=== PATIENT | female | born 1990 | race Caucasian/White ===

== ENCOUNTER 2018-06-07 08:29 | Inpatient (IN) ==
[2018-06-07] MEDS ORDERED: Citric Acid/Sodium Citrate Liq 30 ML UDC PO SCH (09:30)
[2018-06-07] MEDS ORDERED: Morphine Sulfate PF Inj 5 MG/10 ML Ampul ONE (09:40)
[2018-06-07 09:52] LABS: Baso % (Auto) 0.5 % (0.0-2.0); Eos # (Auto) 0.1 th/mm3 (0.0-0.4); Hematocrit 35.1 % (35.0-46.0); Lymph # (Auto) 2.1 th/mm3 (1.0-4.8); Lymph % (Auto) 29.7 % (9.0-44.0); Mean Corpuscular HGB Conc 34.1 % (32.0-36.0); Mean Corpuscular Hemoglobin 33.3 pg (27.0-34.0); Mean Corpuscular Volume 97.8 fL (80.0-100.0); Mean Platelet Volume 9.9 fL (7.0-11.0); Mono # (Auto) 0.8 th/mm3 (0.0-0.9); Mono % (Auto) 10.7 % (0.0-8.0); Neut # (Auto) 4.1 th/mm3 (1.8-7.7); Neut % (Auto) 58.1 % (16.0-70.0); Platelet Count 212 th/mm3 (150-450); Red Blood Count 3.59 mil/mm3 (4.00-5.30); Red Cell Distribution Width 13.6 % (11.6-17.2)
--- NOTE | 2018-06-07 09:57 | P.HPOB ---
History of Present Illness Primary Care Physician: No Primary Care Physician History of Present Illness: 27 year-old at 39 weeks EGA by dates, confirmed with 10 week ultrasound. Presents for elective . She denies any contractions today or leakage of fluid. Denies any vaginal bleeding. Patient has felt movements. care: [facility] by Dr. Cerna starting at 10 weeks. Patient has had an uncomplicated course. No UTIs. Patient is compliant. Denies a diagnosis of Gestational diabetes and preeclampsia. Patient has been NPO after midnight. labs: A negative, hemoglobin = 12 on 06/07, rubella immune, HepBsAg nonreactive, HIV negative, Pap within normal limits, GC chlamydia negative, glucose = 132, GBS negative. OB Hx: First had an uncomplicated course. Emergency C- section at 40 weeks due to umbilical cord strangulation in 2007. 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 PMH: Fibromyalgia, Anxiety, Depression. FHx: Denies any defects, CF, twins. Allergies: NKDA Meds: vitamins. Social history: No tobacco, alcohol or drug abuse, , no domestic violence. - Inpatient Certification I certify that the inpatient services were ordered in accordance with Medicare regulations governing the order. This includes certification that hospital inpatient services are reasonable and necessary and in the case of services not specified as inpatient-only under 42 CFR 419.22(n), that they are appropriately provided as inpatient services in accordance to with the 2-midnight benchmark under 43 CFR 412.3(e) Estimated Total Length of Stay (Days): 3 Plans for Post Hospital Care: Home Review of Systems All other systems reviewed negative except as stated in HPI PMFSH - History History Provided By: Patient - Travel History Recent Travel in the [place] Within the Last 8 Weeks: No Recent Travel Out of the Country Within the Last 8 Weeks: No Medications and Allergies Allergies Allergy/AdvReac Type Severity Reaction Status Date / Time No Known Drug Allergies Allergy Unknown none Verified 06/07/18 09:03 Home Medications Medication Instructions Recorded Confirmed Type + DHA 1 tab PO DAILY 06/07/18 06/07/18 History Active Medications: Active Medications Citric Acid/Sodium Citrate (Sodium Citrate/Citric Acid Liq) 30 ml PO [employer] [place] Stop: 06/11/18 09:29 Cefazolin Sodium 2,000 mg/ (Sodium Chloride) 100 mls @ 200 mls/hr IV.SIG [employer] [facility] Stop: 06/11/18 09:59 Lactated Ringer's (Lr 1000 Ml Inj) 1,000 mls @ 2,000 mls/hr IV.SIG .Q30M ONE Stop: 06/07/18 09:58 Lactated Ringer's (Lr 1000 Ml Inj) 1,000 mls @ 150 mls/hr IV.CONT .Q6H40M [facility] Exam Vital signs: Vital Signs 06/07/18 08:44 Temperature 97.7 F Pulse Rate 96 H Respiratory Rate 16 Blood Pressure 120/79 Intake & Output 06/06/18 06/07/18 06/07/18 18:59 06:59 18:59 Weight 93.44 kg Other: Weight On Admission 93.44 kg Narrative: GENERAL: Well-nourished, well-developed patient. SKIN: Warm and dry. HEAD: Normocephalic and atraumatic. EYES: No scleral icterus. No injection or drainage. ENT: No nasal drainage noted. Mucous membranes pink. Airway patent. NECK: Supple, trachea midline. No JVD. CARDIOVASCULAR: Regular rate and rhythm without murmurs, gallops, or rubs. RESPIRATORY: Breath sounds equal bilaterally. No accessory muscle use. ABDOMEN/GI: Abdomen soft, non-tender, bowel sounds present, no rebound, no guarding Gravid to 39 weeks size FHT's: Category: 1 Baseline: 140 bmp Reactive: + Variability: moderate Decels: none EXTREMITIES: No cyanosis or edema. NEUROLOGICAL: Awake and alert. Normal speech. - Constitutional no acute distress - Routine Abdominal Exam Comments: gravid - Routine Extremities Exam Comments: warm, well perfused in lower ext b/l. Results - Labs CBC & Chem 7: 06/07/18 09:00 Caprini VTE Risk Assessment Caprini VTE Risk Assessment: No/Low Risk (score <= 1) Caprini Risk Assessment Model: Point Value = 1 Point Value = 2 Point Value = 3 Point Value = 5 Age 41-60 Minor surgery BMI > 25 kg/m2 Swollen legs Varicose veins or History of unexplained or recurrent spontaneous Oral contraceptives or hormone replacement Sepsis (< 1 month) Serious lung disease, including pneumonia (< 1 month) Abnormal pulmonary function Acute myocardial infarction Congestive heart failure (< 1 month) History of inflammatory bowel disease Medical patient at bed rest Age 61-74 Arthroscopic surgery Major open surgery (> 45 min) Laparoscopic surgery (> 45 min) Malignancy Confined to bed (> 72 hours) Immobilizing plaster cast Central venous access Age >= 75 History of VTE Family history of VTE Factor V Leiden Prothrombin [id number] Lupus anticoagulant Anticardiolipin antibodies Elevated serum homocysteine Heparin-induced thrombocytopenia Other congenital or acquired thrombophilia Stroke (< 1 month) Elective arthroplasty Hip, pelvis, or leg fracture Acute spinal cord injury (< 1 month) Prophylaxis Regimen: Total Risk Factor Score Risk Level Prophylaxis Regimen 0-1 Low Early ambulation 2 Moderate Order ONE of the following: *Sequential Compression Device (SCD) *Heparin 5000 units SQ BID 3-4 Higher Order ONE of the following medications: *Heparin 5000 units SQ TID *Enoxaparin/Lovenox 40 mg SQ daily (WT < 150 kg, CrCl > 30 mL/min) *Enoxaparin/Lovenox 30 mg SQ daily (WT < 150 kg, CrCl > 10-29 mL/min) *Enoxaparin/Lovenox 30 mg SQ BID (WT < 150 kg, CrCl > 30 mL/min) AND/OR *Sequential Compression Device (SCD) 5 or more Highest Order ONE of the following medications: *Heparin 5000 units SQ TID (Preferred with Epidurals) *Enoxaparin/Lovenox 40 mg SQ daily (WT < 150 kg, CrCl > 30 mL/min) *Enoxaparin/Lovenox 30 mg SQ daily (WT < 150 kg, CrCl > 10-29 mL/min) *Enoxaparin/Lovenox 30 mg SQ BID (WT < 150 kg, CrCl > 30 mL/min) AND *Sequential Compression Device (SCD) Assessment and Plan - Plan 27 year old at 39 weeks here for elective . -admit to labor and delivery -[facility]/[place] -routine antepartum/ care. -H&H ordered. -Patient to remain NPO. The exam, history, and the medical decision-making described in the above note were completed with the assistance of the resident physician. I reviewed and agree with the findings presented. I attest that I had a [id number] encounter with the patient on the same day, and personally performed and documented my assessment and findings in the medical record.
[2018-06-07] MEDS ORDERED: ceFAZolin Inj 2,000 MG in Sodium Chlor 0.9% Inj 80 ML IV.SIG SCH (10:00)
[2018-06-07 10:11] LABS: Bilirubin,Urine Negative (Negative); Clarity,Urine Hazy (Clear); Glucose,Urine (UA) Negative (Negative); Leukocyte Esterase,Urine Negative (Negative); Mucus,Urine Many /lpf (Occasional); Nitrite,Urine Negative (Negative); Specific Gravity,Urine 1.024 (1.002-1.035); Squamous Epithelial Cell,Urine 1 /hpf (0-5); Urobilinogen,Urine 4 or Greater mg/dL (Less than 2)
[2018-06-07 10:14] LABS: Color,Urine Dark-Yellow (Yellw/Straw)
[2018-06-07 10:29] LABS: Amphetamine Screen,Urine Neg (Neg); Barbiturate Screen,Urine Neg (Neg); Cannabinoid Screen,Urine Neg (Neg); Cocaine Screen,Urine Neg (Neg)
[2018-06-07] MEDS ORDERED: Naloxone Inj 0.4 MG/ML Vial IV.PUSH PRN (10:30)
[2018-06-07 10:31] LABS: Opiate Screen,Urine Neg (Neg)
[2018-06-07] MEDS ORDERED: Acetaminophen 325 MG Tablet PO PRN (11:46)
[2018-06-07] MEDS ORDERED: Senna/Docusate Sodium 8.6/50 MG Tablet PO PRN (11:46)
[2018-06-07] MEDS ORDERED: Oxytocin 30 Units/500ml Premix 30 UNITS/500 ML BAG IV.SIG ONE (12:00)
[2018-06-07] MEDS ORDERED: Phenylephrine/NS 1000 MCG/10ML Syringe IV.PUSH ONE (12:00)
[2018-06-07] MEDS ORDERED: Ketorolac Inj 30 MG/ML (IVP) Vial IV.PUSH ONE (12:00)
[2018-06-07] MEDS ORDERED: Oxytocin 30 Units/500ml Premix 30 UNITS/500 ML BAG ONE ×2 (12:30→12:42)
--- NOTE | 2018-06-07 13:29 | MP ---
cc: Germania Marcial MD DATE OF OPERATION: 06/07/2018 PREOPERATIVE DIAGNOSIS: Previous low transverse delivery. POSTOPERATIVE DIAGNOSES: Previous low transverse delivery. ESTIMATED BLOOD LOSS: 600 mL FLUIDS: 1800 mL COMPLICATIONS: URINE: 100 mL FINDINGS: Normal-appearing uterus, tubes and ovaries. Small adhesions of the bladder to the anterior uterine wall. PROCEDURE IN DETAIL: Informed consent was verified, the patient was taken to the operating room and prepped and draped in the normal sterile fashion and placed in the dorsal lithotomy position. A Pfannenstiel skin incision was made with the scalpel and carried through to the underlying layer of fascia. The fascia was incised in the midline and extended laterally with Greer scissors. The superior aspect was grasped with a Mansoor clamp, elevated and rectus muscles dissected off bluntly. The inferior aspect was elevated with Mansoor clamps and rectus muscles dissected off bluntly, peritoneum entered bluntly. An Suman retractor placed. Bladder flap was created with Metzenbaum scissors. A low transverse uterine incision was created with a 10 blade scalpel. 's head was delivered atraumatically. Nose and mouth suctioned and handed to awaiting pediatricians. The uterus was closed with #1 chromic in a running locked fashion, the second layer was closed with #1 Vicryl in a running fashion. The fascia was reapproximated with #1 Vicryl in a running fashion. Subcutaneous tissues were reapproximated with 2-0 Vicryl and subcuticular stitch of 3-0 Monocryl was used to close the skin incision. The patient tolerated the procedure well. Sponge, lap, and needle counts were correct x2. The patient was taken to the recovery room in stable condition. Germania Marcial MD IS/ct , 01:04 PM , 01:13 PM
[2018-06-07] MEDS ORDERED: Oxytocin 30 Units/500ml Premix 30 UNITS/500 ML BAG IV.SIG PRN (16:47)
[2018-06-08] MEDS: Ibuprofen 400 MG Tablet PO PRN ×2 (04:36→13:58)
[2018-06-08 08:29] LABS: Baso % (Auto) 0.2 % (0.0-2.0); Eos # (Auto) 0.1 th/mm3 (0.0-0.4); Eos % (Auto) 0.7 % (0.0-4.0); Hematocrit 28.6 % (35.0-46.0); Hemoglobin 9.8 gm/dL (11.6-15.3); Lymph # (Auto) 2.4 th/mm3 (1.0-4.8); Lymph % (Auto) 19.3 % (9.0-44.0); Mean Corpuscular HGB Conc 34.3 % (32.0-36.0); Mean Corpuscular Hemoglobin 33.7 pg (27.0-34.0); Mean Platelet Volume 9.8 fL (7.0-11.0); Mono # (Auto) 1.3 th/mm3 (0.0-0.9); Mono % (Auto) 10.4 % (0.0-8.0); Neut # (Auto) 8.6 th/mm3 (1.8-7.7); Neut % (Auto) 69.4 % (16.0-70.0); Platelet Count 186 th/mm3 (150-450); Red Blood Count 2.91 mil/mm3 (4.00-5.30); Red Cell Distribution Width 13.9 % (11.6-17.2); White Blood Count 12.4 th/mm3 (4.0-11.0)
--- NOTE | 2018-06-08 08:39 | P.PNOB ---
Subjective Interval history: Patient seen and examined this morning at bedside. She is a 27 year-old delivered at 39 weeks. Patient is postop day 1 after elective . Patient 's pain is well-controlled. Patient reports eating and drinking without any nausea or vomiting. Patient reports minimal bleeding. Patient has not passed gas and had no bowel movements. Patient is walking without lower extremity pain or shortness of breath. Patient reports desire for contraception with Nexplanon and is breast-feeding. Objective Vital Signs/I&O: Vital Signs 06/07/18 08:44 06/07/18 11:52 06/07/18 12:05 Temperature 97.7 F 97.5 F L Pulse Rate 96 H 58 L 65 Respiratory Rate 16 18 18 Blood Pressure 120/79 110/56 L 120/69 06/07/18 12:25 06/07/18 12:34 06/07/18 12:37 Temperature 97.5 F L Pulse Rate 55 L 61 Respiratory Rate 18 18 Blood Pressure 118/57 L 109/65 06/07/18 13:27 06/07/18 20:15 06/08/18 00:00 Temperature 97.4 F L 98.2 F 98.1 F Pulse Rate 59 L 75 63 Respiratory Rate 22 18 18 Blood Pressure 120/73 106/52 L 101/56 L 06/08/18 04:00 06/08/18 08:00 Temperature 98.4 F 98.1 F Pulse Rate 58 L 72 Respiratory Rate 16 18 Blood Pressure 98/58 L 98/52 L Intake & Output 06/07/18 06/08/18 06/08/18 18:59 06:59 18:59 Weight 93.44 kg Other: Weight On Admission 93.44 kg Result Diagrams: 06/08/18 07:50 Objective Remarks: GENERAL: Well-nourished, well-developed patient. CARDIOVASCULAR: Regular rate and rhythm without murmurs, gallops, or rubs. RESPIRATORY: Breath sounds equal bilaterally. No accessory muscle use. ABDOMEN/GI: Abdomen soft, non-tender, bowel sounds present. Incision: Clean, dry and intact. Fundus: Firm, non-tender at umbilicus. GENITOURINARY: Light to moderate bleeding. EXTREMITIES: No cyanosis or edema, non-tender, without signs of DVT. Medications and IVs: Active Medications Acetaminophen (Tylenol) 650 mg PO Q6H PRN PRN Reason: PAIN SCALE 1 TO 2 Diphenhydramine HCl (Benadryl) 50 mg PO Q6H PRN PRN Reason: MILD TO MODERATE ITCHING Stop: 06/08/18 10:29 Diphenhydramine HCl (Benadryl Inj) 25 mg IV.PUSH Q6H PRN PRN Reason: MILD TO MODERATE ITCHING Stop: 06/08/18 10:29 Diphtheria/Pertussis/Tetanus Vacc (Boostrix Vaccine Inj) 0.5 ml IM .ONCE ONE Stop: 06/08/18 16:01 Lactated Ringer's (Lr 1000 Ml Inj) 1,000 mls @ 100 mls/hr IV.CONT .Q10H [place] Stop: 06/08/18 12:46 Oxytocin (Pitocin 30 Units/Ns 500 Ml Premix) 30 units in 500 mls @ 100 mls/hr IV.SIG UNSCH PRN PRN Reason: Heavy bleeding Ibuprofen (Motrin) 800 mg PO Q8H PRN PRN Reason: cramping Last Admin: 06/08/18 04:36 Dose: 800 mg Measles/Mumps/Rubella Vaccine Live (M-M-R Ii Vaccine Inj) 0.5 ml SQ .ONCE ONE Stop: 06/08/18 16:01 Miscellaneous Information ([facility]) 1 each OTHER UNSCH PRN PRN Reason: SEE LABEL COMMENTS Stop: 06/08/18 14:31 Miscellaneous Information ([facility]) 1 each OTHER UNSCH PRN PRN Reason: SEE LABEL COMMENTS Stop: 06/08/18 10:29 Naloxone HCl (Narcan Inj) 0.4 mg IV.PUSH UNSCH PRN PRN Reason: SEE LABEL COMMENTS Stop: 06/08/18 10:29 Oxycodone/Acetaminophen (Percocet 5/325 Mg) 1 tab PO Q4H PRN PRN Reason: PAIN SCALE 3 TO 5 Oxycodone/Acetaminophen (Percocet 5/325 Mg) 2 tab PO Q4H PRN PRN Reason: PAIN SCALE 6 TO 10 Senna/Docusate Sodium (Radha-Colace) 2 tab PO Q12H PRN PRN Reason: CONSTIPATION Sodium Chloride (Ns Flush) 2 ml IV.FLUSH BID [place] Sodium Chloride (Ns Flush) 2 ml IV.FLUSH UNSCH PRN PRN Reason: FLUSH AFTER USING IV ACCESS Assessment and Plan - Plan Patient is a 27 year-old [id number] at 39 weeks. Patient is post op day 1 after elective . -Continue routine care. -Motrin and Percocet when necessary for pain. -Encourage OOB -Pelvic rest for 6 weeks will need follow-up appointment at that time. -Will need follow up in one week for follow up. -Contraception: Mirena -Continue to keep incision clean and dry. Monitor for bleeding. -Monitor for BM/Flatus status: If none at noon. Encourage stool softener. - appropriately. -Discussed with Dr. Frankel .
[2018-06-08] MEDS ORDERED: Measles/Mumps/Rubella Vaccine Inj 0.5 ML Vial SQ ONE (16:00)
[2018-06-08] MEDS ORDERED: Diphtheria/Tetanus/Pertussis Vaccine Inj 0.5 ML Syringe IM ONE (16:00)
--- NOTE | 2018-06-09 08:33 | P.PNOB ---
Subjective Interval history: Patient seen and examined this morning at bedside. She is a 27 year-old delivered at 39 weeks. Patient is postop day 2 after elective . Patient 's pain is well-controlled. Patient reports eating and drinking without any nausea or vomiting. Patient reports minimal bleeding. Patient has passed gas and had no bowel movements. Patient is walking without lower extremity pain or shortness of breath. Patient reports desire for contraception with Nexplanon and is breast-feeding. Objective Vital Signs/I&O: Vital Signs 06/08/18 11:39 06/08/18 16:42 06/08/18 21:00 Temperature 97.8 F 97.6 F 97.8 F Pulse Rate 75 90 80 Respiratory Rate 18 16 16 Blood Pressure 102/53 L 107/69 93/62 L 06/09/18 08:00 Temperature 98.0 F Pulse Rate 74 Respiratory Rate 20 Blood Pressure 114/67 Intake & Output 06/08/18 06/09/18 06/09/18 18:59 06:59 18:59 Intake Total 0 / 0 Balance 0 / 0 Intake: Intake (Blood Product) Amt 0 / 0 Rho(D) Immune Globulin Unit 0 / 0 [id number] Result Diagrams: 06/08/18 07:50 Objective Remarks: GENERAL: Well-nourished, well-developed patient. CARDIOVASCULAR: Regular rate and rhythm without murmurs, gallops, or rubs. RESPIRATORY: Breath sounds equal bilaterally. No accessory muscle use. ABDOMEN/GI: Abdomen soft, non-tender, bowel sounds present. Incision: Clean, dry and intact. Fundus: Firm, non-tender at umbilicus. GENITOURINARY: Light to moderate bleeding. EXTREMITIES: No cyanosis or edema, non-tender, without signs of DVT. Medications and IVs: Active Medications Acetaminophen (Tylenol) 650 mg PO Q6H PRN PRN Reason: PAIN SCALE 1 TO 2 Oxytocin (Pitocin 30 Units/Ns 500 Ml Premix) 30 units in 500 mls @ 100 mls/hr IV.SIG UNSCH PRN PRN Reason: Heavy bleeding Ibuprofen (Motrin) 800 mg PO Q8H PRN PRN Reason: cramping Last Admin: 06/09/18 01:33 Dose: 800 mg Oxycodone/Acetaminophen (Percocet 5/325 Mg) 1 tab PO Q4H PRN PRN Reason: PAIN SCALE 3 TO 5 Last Admin: 06/09/18 01:32 Dose: 1 tab Oxycodone/Acetaminophen (Percocet 5/325 Mg) 2 tab PO Q4H PRN PRN Reason: PAIN SCALE 6 TO 10 Senna/Docusate Sodium (Radha-Colace) 2 tab PO Q12H PRN PRN Reason: CONSTIPATION Last Admin: 06/09/18 01:32 Dose: 2 tab Sodium Chloride (Ns Flush) 2 ml IV.FLUSH BID [place] Last Admin: 06/09/18 00:06 Dose: Not Given Sodium Chloride (Ns Flush) 2 ml IV.FLUSH UNSCH PRN PRN Reason: FLUSH AFTER USING IV ACCESS Assessment and Plan - Plan Patient is a 27 year-old [id number] at 39 weeks. Patient is post op day 2 after elective . -Continue routine care. -Motrin and Percocet when necessary for pain. -Encourage OOB -Pelvic rest for 6 weeks will need follow-up appointment at that time. -Will need follow up in one week for follow up. -Contraception: Mirena -Continue to keep incision clean and dry. Monitor for bleeding. -Monitor for BM. Encourage stool softener. - appropriately. -Plan for discharge today. -Discussed with Dr. Frankel .
[2018-06-10 07:59] VITALS: BP 107/63; PULSE 67; RESP 20; TEMP 98.1
--- NOTE | 2018-06-10 08:58 | P.PNOB ---
Subjective Interval history: Patient seen and examined this morning at bedside. She is a 27 year-old delivered at 39 weeks. Patient is postop day 3 after elective . Patient 's pain is well-controlled. Patient reports eating and drinking without any nausea or vomiting. Patient reports minimal bleeding. Patient has passed gas and had no bowel movements. Patient is walking without lower extremity pain or shortness of breath. Patient reports desire for contraception with Nexplanon and is breast-feeding. Objective Vital Signs/I&O: Vital Signs 06/09/18 21:00 06/10/18 07:58 Temperature 98.3 F 98.1 F Pulse Rate 62 67 Respiratory Rate 18 20 Blood Pressure 113/61 107/63 Result Diagrams: 06/08/18 07:50 Objective Remarks: GENERAL: Well-nourished, well-developed patient. CARDIOVASCULAR: Regular rate and rhythm without murmurs, gallops, or rubs. RESPIRATORY: Breath sounds equal bilaterally. No accessory muscle use. ABDOMEN/GI: Abdomen soft, non-tender, bowel sounds present. Incision: Clean, dry and intact. Fundus: Firm, non-tender at umbilicus. GENITOURINARY: Light to moderate bleeding. EXTREMITIES: No cyanosis or edema, non-tender, without signs of DVT. Medications and IVs: Active Medications Acetaminophen (Tylenol) 650 mg PO Q6H PRN PRN Reason: PAIN SCALE 1 TO 2 Oxytocin (Pitocin 30 Units/Ns 500 Ml Premix) 30 units in 500 mls @ 100 mls/hr IV.SIG UNSCH PRN PRN Reason: Heavy bleeding Ibuprofen (Motrin) 800 mg PO Q8H PRN PRN Reason: cramping Last Admin: 06/10/18 08:00 Dose: 800 mg Oxycodone/Acetaminophen (Percocet 5/325 Mg) 1 tab PO Q4H PRN PRN Reason: PAIN SCALE 3 TO 5 Last Admin: 06/09/18 01:32 Dose: 1 tab Oxycodone/Acetaminophen (Percocet 5/325 Mg) 2 tab PO Q4H PRN PRN Reason: PAIN SCALE 6 TO 10 Last Admin: 06/09/18 23:19 Dose: 2 tab Senna/Docusate Sodium (Radha-Colace) 2 tab PO Q12H PRN PRN Reason: CONSTIPATION Last Admin: 06/09/18 01:32 Dose: 2 tab Sodium Chloride (Ns Flush) 2 ml IV.FLUSH BID [place] Last Admin: 06/09/18 10:46 Dose: Not Given Sodium Chloride (Ns Flush) 2 ml IV.FLUSH UNSCH PRN PRN Reason: FLUSH AFTER USING IV ACCESS Assessment and Plan - Plan Patient is a 27 year-old delivered at 39 weeks. Patient is post op day 3 after elective . -Continue routine care. -Motrin and Percocet when necessary for pain. -Encourage OOB -Pelvic rest for 6 weeks will need follow-up appointment at that time. -Will need follow up in one week for follow up. -Contraception: Mirena -Continue to keep incision clean and dry. Monitor for bleeding. -Monitor for BM. Encourage stool softener. - appropriately. -Plan for discharge today. -Discussed with Dr. Zuniga
== END 2018-06-10 13:51 | disposition home or self-care (01) ==
LOC: H2E 08:29 → H1EA 12:50
PROVIDERS: ADMIT Obstetrics & Gynecology; ATTEND Obstetrics & Gynecology